=== PATIENT | male | born 1985 | race American Indian/Alaskan Native ===

== ENCOUNTER 2017-09-21 02:18 | Emergency (ER) | payer SELFPAY ==
[2017-09-21 02:59] VITALS: BP 127/80
[2017-09-21] MEDS ORDERED: NORCO 5/325 PO ONE (04:42)
--- NOTE | 2017-09-21 04:54 | Emergency Department Report ---
ED Extremity Problem HPI - General Chief complaint: Extremity Injury, Lower Stated complaint: LT LEG PAIN Time Seen by Provider: 09/21/17 04:22 Source: patient Mode of arrival: Ambulatory Limitations: No Limitations - History of Present Illness Initial comments: 32-year-old male past medical history chronic degenerative lower back disease presents with complaint of acute on chronic left foot pain and paresthesias. Patient stated he has had paresthesias for over 6 months. Follows with a pain management doctor Dr. Ledesma. Patient denies any recent trauma or any saddle paresthesias bladder or bowel incontinence. Patient states that he has received several steroid injections to his lower back over the last several months. Patient is ambulatory without assistance. Denies any fevers or chills. Denies any dysuria or hematuria or increased urinary frequency. MD Complaint: extremity pain, other (left foot paraesthesias) Onset/Timin -: month(s) Location: left, lower extremity Quality: other (occasional sharp pain with associated paresthesias left foot and leg) Improves with: nothing - Related Data Previous Rx's Medication Instructions Recorded Last Taken Type Amoxicillin [Trimox CAP] 500 mg PO Q8H #30 capsule 05/14/13 05/22/13 Rx Prednisone 20 mg PO QDAY #5 tablet 05/14/13 05/22/13 Rx Ibuprofen [Motrin] 600 mg PO Q6H PRN #20 tablet 05/25/13 Unknown Rx Methocarbamol [Robaxin] 750 mg PO BID #14 tab 05/25/13 Unknown Rx traMADol [Ultram 50 MG tab] 50 mg PO Q4HR PRN #20 tablet 05/25/13 Unknown Rx ALBUTEROL Inhaler [ProAir HFA 2 puff IH QID PRN #1 inhalation 03/20/15 Unknown Rx Inhaler] Amoxicillin [Trimox CAP] 500 mg PO Q8H #30 capsule 03/20/15 Unknown Rx Prednisone [predniSONE 10 mg 10 mg PO .TAPER #1 tab.ds.pk 03/20/15 Unknown Rx (6-Day Pack, 21 Tabs)] Naproxen 500 mg PO BID PRN #20 tablet 09/21/17 Unknown Rx Allergies Allergy/AdvReac Type Severity Reaction Status Date / Time No Known Allergies Allergy Verified 05/14/13 21:49 ED Review of Systems ROS: Stated complaint: LT LEG PAIN Other details as noted in HPI Constitutional: denies: chills, fever Eyes: denies: eye pain, eye discharge, vision change ENT: denies: ear pain, throat pain Respiratory: denies: cough, shortness of breath, wheezing Cardiovascular: denies: chest pain, palpitations Endocrine: no symptoms reported Gastrointestinal: denies: abdominal pain, nausea, diarrhea Genitourinary: denies: urgency, dysuria Musculoskeletal: back pain. denies: joint swelling, arthralgia Skin: denies: rash, lesions Neurological: paresthesias. denies: headache, weakness Psychiatric: denies: anxiety, depression Hematological/Lymphatic: denies: easy bleeding, easy bruising ED Past Medical Hx - Past Medical History Previous Medical History?: Yes Additional medical history: bronchitis - Surgical History Past Surgical History?: No - Social History Smoking Status: Current Every Day Smoker Substance Use Type: Marijuana - Medications Home Medications: Home Medications Medication Instructions Recorded Confirmed Last Taken Type Amoxicillin [Trimox CAP] 500 mg PO Q8H #30 capsule 05/14/13 05/25/13 05/22/13 Rx Prednisone 20 mg PO QDAY #5 tablet 05/14/13 05/25/13 05/22/13 Rx Ibuprofen [Motrin] 600 mg PO Q6H PRN #20 tablet 05/25/13 Unknown Rx Methocarbamol [Robaxin] 750 mg PO BID #14 tab 05/25/13 Unknown Rx traMADol [Ultram 50 MG tab] 50 mg PO Q4HR PRN #20 tablet 05/25/13 Unknown Rx ALBUTEROL Inhaler [ProAir HFA 2 puff IH QID PRN #1 inhalation 03/20/15 Unknown Rx Inhaler] Amoxicillin [Trimox CAP] 500 mg PO Q8H #30 capsule 03/20/15 Unknown Rx Prednisone [predniSONE 10 mg 10 mg PO .TAPER #1 tab.ds.pk 03/20/15 Unknown Rx (6-Day Pack, 21 Tabs)] Naproxen 500 mg PO BID PRN #20 tablet 09/21/17 Unknown Rx ED Physical Exam - General Limitations: No Limitations General appearance: alert, in no apparent distress - Head Head exam: Present: atraumatic, normocephalic - Eye Eye exam: Present: normal appearance - ENT ENT exam: Present: mucous membranes moist - Neck Neck exam: Present: normal inspection - Respiratory Respiratory exam: Present: normal lung sounds bilaterally. Absent: respiratory distress - Cardiovascular Cardiovascular Exam: Present: regular rate, normal rhythm. Absent: systolic murmur, diastolic murmur, rubs, gallop - GI/Abdominal GI/Abdominal exam: Present: soft, normal bowel sounds - Rectal Rectal exam: Present: deferred - Extremities Exam Extremities exam: Present: normal inspection - Back Exam Back exam: Present: normal inspection, full ROM (there is no midline cervical thoracic or lumbar spinal tenderness) - Expanded Back Exam Expanded Back exam: Positive Straight Leg Raise: Left (at 45) - Neurological Exam Neurological exam: Present: alert, oriented X3, CN II-XII intact, normal gait - Expanded Neurological Exam Expanded Patient oriented to: Present: person, place, time Cerebellar function: Finger to Nose: Normal, Heel to Sánchez: Normal, Romberg: Normal Sensory exam: Upper Extremity Light Touch: Normal, Lower Extremity Light Touch: Normal, Lower Extremity Pin Prick: Normal Motor strength exam: RUE: 5, LUE: 5, RLE: 5, LLE: 5 DTR: knee (R): 3+, knee (L): 3+, ankle (R): 3+, ankle (L): 3+ Best Eye Response ([place]): (4) open spontaneously Best Motor Response ([place]): (6) obeys commands Best Verbal Response ([place]): (5) oriented [place] Total: 15 - Psychiatric Psychiatric exam: Present: normal affect, normal mood - Skin Skin exam: Present: warm, dry, intact, normal color. Absent: rash ED Course Vital Signs 09/21/17 09/21/17 09/21/17 02:53 05:00 05:30 Temperature 98.5 F Pulse Rate 81 Respiratory 20 18 18 Rate Blood Pressure 127/80 O2 Sat by Pulse 89 Oximetry ED Medical Decision Making - Medical Decision Making A/P: Sciatica left lower extremity 1-symptoms consistent with sciatica as this is an ongoing chronic issue patient has had paresthesias for over 6 months 2-no clinical signs of cauda equina. Strength 5 out of 5 bilateral lower extremities no bladder or bowel incontinence no saddle paresthesias reported by patient no erectile dysfunction reported by patient 3-follow-up with neurosurgery and orthopedics and primary care 4- educated patient on signs and symptoms and general management of sciatica and advised him that it is important to follow up with outpatient specialists for this issue and to return to the ED if he experiences paralysis loss of bladder or bowel control and ability to ambulate or total loss of sensation in left lower extremity Critical care attestation.: If time is entered above; I have spent that time in minutes in the direct care of this critically ill patient, excluding procedure time. ED Disposition Clinical Impression: Sciatica Qualifiers: Laterality: left Qualified Code(s): M54.32 - Sciatica, left side Disposition: TO HOME OR SELFCARE Is pt being admited?: No Does the pt Need Aspirin: No Condition: Stable Instructions: Sciatica (ED), Lumbar Radiculopathy (ED) Prescriptions: Naproxen 500 mg PO BID PRN #20 tablet PRN Reason: Pain Referrals: KATHY MONTGOMERY MD [Staff Physician] - 3-5 Days [facility] [Provider Group] - 3-5 Days Forms: Work/School Release Form(ED) Time of Disposition: 05:17
--- NOTE | 2017-09-21 05:03 | XRay Report ---
FINAL REPORT EXAM: XR SPINE LUMBOSACRAL 2-3V HISTORY: lower back pain TECHNIQUE: Three views of the lumbar spine were obtained. FINDINGS: There is a mild dextroscoliosis of the thoracolumbar junction. There is mild narrowing of the L4-5 and L5-S1 disc. The upper lumbar discs are normal height. There is no evidence of fracture. The SI joints appear normal. IMPRESSION: Mild dextroscoliosis. Disc degeneration at the L4-5 and L5-S1 levels.
== END 2017-09-21 05:30 | disposition home or self-care (01) ==
LOC: ED 02:18
DX: M54.32 Sciatica, left side (principal); F17.200 Nicotine dependence, unspecified, uncomplicated; F12.10 Cannabis abuse, uncomplicated; Z79.899 Other long term (current) drug therapy
CPT/HCPCS: 72100; 99283